=== PATIENT | male | born 1975 | race Caucasian/White ===

== ENCOUNTER 2017-12-28 08:54 | Emergency (ER) | payer MEDICAID, OTHER ==
--- NOTE | 2017-12-28 09:35 | ED Physician Documentation ---
PD HPI CHEST PAIN - Stated complaint Stated Complaint: CP/NECK PX - Chief complaint Chief Complaint: Cardiac - History obtained from History obtained from: Patient - History of Present Illness Timing - onset: How many days ago (6) Timing - onset during: Rest Timing - duration: Days (6) Timing - details: Gradual onset, Still present Quality: Pressure, Tightness Location: Substernal Improved by: Rest Worsened by: Inspiration, Movement, Palpation Associated symptoms: No: Shortness of air, Diaphoresis, Nausea, Vomiting, Feeling faint / dizzy, General Weakness, Palpitations, Cough Similar symptoms before: Has not had sx before Recently seen: Not recently seen - Additional information Additional information: 42-year-old male has developed some chest pain in his anterior chest is worse with inspiration and with movement of his neck. He states that he believes this is related to moving a heavy object 3 weeks ago. 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 Over the past 6 days he has developed anterior chest pain that is worse with moving his neck to the left and not to the right. He has pain in the left neck that extends to the left scalp. He denies diaphoresis, dyspnea or exertional component to the chest pain. Review of Systems Constitutional: reports: Myalgias. denies: Fever, Chills Eyes: denies: Loss of vision, Decreased vision Ears: denies: Ear pain Nose: denies: Rhinorrhea / runny nose, Congestion Throat: denies: Sore throat Cardiac: reports: Chest pain / pressure. denies: Palpitations, Pedal edema, Calf pain Respiratory: denies: Dyspnea, Cough, Wheezing GI: denies: Abdominal Pain, Nausea, Vomiting : denies: Dysuria, Frequency Skin: denies: Rash Musculoskeletal: reports: Neck pain, Extremity pain. denies: Back pain Neurologic: denies: Generalized weakness, Focal weakness, Numbness, Difficulty speaking PD PAST MEDICAL HISTORY - Past Medical History Past Medical History: No - Past Surgical History Past Surgical History: Yes Ortho: Other HEENT: Tonsil/Adenoidectomy - Present Medications Home Medications: Ambulatory Orders Medication Instructions Recorded Confirmed Cyclobenzaprine [Flexeril] 10 mg PO TID PRN #20 tablet 12/28/17 HYDROcod/ACETAM 5/325 [[place] 5/325] 1 - 2 ea PO Q6H PRN #15 tablet 12/28/17 - Allergies Allergies/Adverse Reactions: Allergies Allergy/AdvReac Type Severity Reaction Status Date / Time Sulfa (Sulfonamide AdvReac Cramps Verified 12/28/17 10:23 Antibiotics) - Social History Does the pt smoke?: Yes Smoking Status: Current every day smoker Does the pt drink ETOH?: No Does the pt have substance abuse?: No - POLST Patient has POLST: No PD ED PE NORMAL - Vitals Vital signs reviewed: Yes (hypertensive diastolic ) - General General: Alert and oriented X 3, No acute distress, Well developed/nourished - HEENT HEENT: Atraumatic, PERRL, EOMI, Ears normal, Moist mucous membranes, Pharynx benign, Dentition benign - Neck Neck: Supple, no meningeal sign, No bony TTP - Cardiac Cardiac: RRR, No murmur - Respiratory Respiratory: No respiratory distress, Clear bilaterally, Other (mild pain to palpation anteriorly ) - Abdomen Abdomen: Soft, Non tender - Back Back: No CVA TTP, No spinal TTP - Derm Derm: Normal color, Warm and dry, No rash - Extremities Extremities: No deformity, No edema - Neuro Neuro: Alert and oriented X 3, solution lead 2-12 intact, No motor deficit, No sensory deficit, Normal speech Eye Opening: Spontaneous Motor: Obeys Commands Verbal: Oriented GCS Score: 15 - Psych Psych: Normal mood, Normal affect Results - Vitals Vitals: Vital Signs - 24 hr 12/28/17 09:07 Temperature 36.7 C Heart Rate 69 Respiratory 14 Rate Blood Pressure 116/89 H O2 Saturation 97 Oxygen O2 Source Room air - EKG (time done) 0905 Rate: Rate (enter#) (62) Rhythm: NSR Other comments: Other comments (borderline short [place]) Compare to prior EKG: Old EKG unavailable Computer interpretation: Agree with computer - Labs Labs: Laboratory Tests 12/28/17 12/28/17 12/28/17 09:57 09:57 09:57 WBC 7.0 RBC 5.27 Hgb 16.4 Hct 48.7 MCV 92.5 MCH 31.2 H MCHC 33.8 RDW 13.0 Plt Count 176 MPV 8.3 Neut # (Auto) 4.3 Lymph # (Auto) 1.8 [place] # (Auto) 0.5 Eos # (Auto) 0.3 Baso # (Auto) 0.0 Absolute Nucleated RBC 0.00 Nucleated RBC % 0.0 ESR Sodium 137 Potassium 4.6 Chloride 103 Carbon Dioxide 29 Anion Gap 5.0 L BUN 18 Creatinine 1.0 Estimated GFR (MDRD) 81 L Glucose 104 H Calcium 9.3 Total Bilirubin 0.6 AST 31 ALT 25 Alkaline Phosphatase 54 Troponin I < 0.04 C-Reactive Protein < 1.0 Total Protein 7.5 Albumin 4.3 Globulin 3.2 Albumin/Globulin Ratio 1.3 Lipase 30 Urine Color Urine Clarity Urine pH Ur Specific [place] Urine Protein Urine Glucose (UA) Urine Ketones Urine Occult Blood Urine Nitrite Urine Bilirubin Urine Urobilinogen Ur Leukocyte Esterase Ur Microscopic Review Urine Culture Comments 12/28/17 12/28/17 09:57 11:00 WBC RBC Hgb Hct MCV MCH MCHC RDW Plt Count MPV Neut # (Auto) Lymph # (Auto) [place] # (Auto) Eos # (Auto) Baso # (Auto) Absolute Nucleated RBC Nucleated RBC % ESR 1 Sodium Potassium Chloride Carbon Dioxide Anion Gap BUN Creatinine Estimated GFR (MDRD) Glucose Calcium Total Bilirubin AST ALT Alkaline Phosphatase Troponin I C-Reactive Protein Total Protein Albumin Globulin Albumin/Globulin Ratio Lipase Urine Color YELLOW Urine Clarity CLEAR Urine pH 7.0 Ur Specific [place] 1.020 Urine Protein NEGATIVE Urine Glucose (UA) NEGATIVE Urine Ketones NEGATIVE Urine Occult Blood NEGATIVE Urine Nitrite NEGATIVE Urine Bilirubin NEGATIVE Urine Urobilinogen 0.2 (NORMAL) Ur Leukocyte Esterase NEGATIVE Ur Microscopic Review NOT INDICATED Urine Culture Comments NOT INDICATED - Rads (name of study) 2 [facility] chest Radiology: Prelim report reviewed (Impression: Normal chest for age and body size, stable. No pneumonia, CHF or other demonstrated cause for the patient's symptoms.), EMP read indepedently, See rad report PD MEDICAL DECISION MAKING - ED course Complexity details: reviewed old records, reviewed results, re-evaluated patient , considered differential, d/w patient ED course: 42-year-old male with a lifting type injury 3 weeks ago has persistence of pain and now is developed some pleuritic chest pain. He has no abnormalities on his chest x-ray electrocardiogram and his troponin is negative. He has some improvement in the pleuritic chest pain with the dexamethasone. He has some mild improvement in his neck pain as well. His neck was not imaged today as I believe the correct imaging for his neck pain his MRI and we do not have access to this today. I will have the patient follow-up with his primary for further evaluation. - Sepsis Event Vital Signs: Vital Signs - 24 hr 12/28/17 09:07 Temperature 36.7 C Heart Rate 69 Respiratory 14 Rate Blood Pressure 116/89 H O2 Saturation 97 Oxygen O2 Source Room air Departure - Departure Disposition: 01 Home, Self Care Clinical Impression: Atypical chest pain, Cervical radiculopathy Condition: Stable Instructions: ED Chest Pain NonCardiac, ED Sprain Strain Neck Follow-Up: Leandro Fuchs MD [Provider Admit Priv/Credential] - Prescriptions: Cyclobenzaprine [Flexeril] 10 mg PO TID PRN #20 tablet PRN Reason: Spasms HYDROcod/ACETAM 5/325 [[place] 5/325] 1 - 2 ea PO Q6H PRN #15 tablet PRN Reason: Pain Forms: Activity restrictions
[2017-12-28] MEDS ORDERED: DEXAMETHASONE 10 MG/ML VIAL IVP STA (09:51)
[2017-12-28 10:06] LABS: BASOPHILS % (AUTO) 0.4 %; EOSINOPHILS # (AUTO) 0.3 10^3/uL (0.0-0.7); EOSINOPHILS % (AUTO) 4.2 %; HGB - HEMOGLOBIN 16.4 g/dL (14.0-18.0); LYMPHOCYTES # (AUTO) 1.8 10^3/uL (1.5-3.5); MEAN CORPUSCULAR HEMOGLOBIN 31.2 pg (27.0-31.0); MEAN CORPUSCULAR HGB CONC 33.8 g/dL (32.0-36.0); MEAN CORPUSCULAR VOLUME 92.5 fL (80.0-94.0); MEAN PLATELET VOLUME 8.3 fL (7.4-11.4); MONOCYTES # (AUTO) 0.5 10^3/uL (0.0-1.0); MONOCYTES % (AUTO) 7.3 %; NEUTROPHILS # (AUTO) 4.3 10^3/uL (1.5-6.6); NEUTROPHILS % (AUTO) 62.1 %; PLT - PLATELET COUNT 176 10^3/uL (130-450); RED BLOOD COUNT 5.27 10^6/uL (4.70-6.10)
[2017-12-28 10:24] LABS: ALBUMIN 4.3 g/dL (3.2-5.5); ALBUMIN/GLOBULIN RATIO 1.3 (1.0-2.2); ALKALINE PHOSPHATASE 54 IU/L (42-121); ALT ALANINE AMINOTRANSFERASE 25 IU/L (10-60); AST ASPARTATE AMINOTRANSFERASE 31 IU/L (10-42); BILIRUBIN,TOTAL 0.6 mg/dL (0.2-1.0); BUN - BLOOD UREA NITROGEN 18 mg/dL (6-20); CALCIUM 9.3 mg/dL (8.5-10.3); CARBON DIOXIDE - CO2 29 mmol/L (21-32); CHLORIDE 103 mmol/L (101-111); GFR - MDRD 81 (>89); GLUCOSE 104 mg/dL (70-100); LIPASE 30 U/L (22-51); SODIUM 137 mmol/L (135-145); TOTAL PROTEIN 7.5 g/dL (6.7-8.2)
[2017-12-28 10:47] LABS: CRP - C-REACTIVE PROTEIN < 1.0 mg/dL (0-1.0)
--- NOTE | 2017-12-28 11:04 | XRAY Report ---
Reason: anterior chest pain Procedure Date: 12/28/2017 Accession Number: [id number] / [id number] Procedure: XR - Chest 2 View X-Ray CPT Code: 78688 FULL RESULT: EXAM: CHEST RADIOGRAPHY, 2 VIEWS EXAM DATE: 12/28/2017 10:48 AM. CLINICAL HISTORY: Anterior chest pain and neck pain for the last 6 days, increased with inspiration, movement and palpitation, in a 42-year-old male. COMPARISON: Chest x-ray 11/30/2007. TECHNIQUE: Upright PA and lateral views. FINDINGS: Lungs/Pleura: No focal opacities evident. No pleural effusion. No pneumothorax. Normal volumes. Mediastinum: Heart and mediastinal contours are unremarkable. No pulmonary vascular congestion or adenopathy. Other: Trachea is midline. Osseous structures are unremarkable. IMPRESSION: Normal chest for age and body size, stable. No pneumonia, CHF or other demonstrated cause for the patient's symptoms. RADIA
[2017-12-28 11:12] LABS: BILIRUBIN,URINE NEGATIVE (NEGATIVE); GLUCOSE, URINE (UA) NEGATIVE (NEGATIVE); KETONES,URINE (UA) NEGATIVE (NEGATIVE); LEUKOCYTE ESTERASE, URINE NEGATIVE (NEGATIVE); NITRITE,URINE NEGATIVE (NEGATIVE); OCCULT BLOOD,URINE NEGATIVE (NEGATIVE); PROTEIN,URINE NEGATIVE (NEGATIVE); UROBILINOGEN,URINE 0.2 (NORMAL) E.U./dL (NORMAL)
[2017-12-28 11:13] LABS: CLARITY,URINE CLEAR (CLEAR)
[2017-12-28 14:21] VITALS: BP 116/85
== END 2017-12-28 14:00 | disposition home or self-care (01) ==
LOC: ED 08:54
DX: R07.89 Other chest pain (principal); M54.12 Radiculopathy, cervical region; F17.200 Nicotine dependence, unspecified, uncomplicated
CPT/HCPCS: 36415; 71046; 80053; 81001; 81003; 83690; 84484; 85025; 85651; 86140; 87086; 93005; 96374; 99283; 99284

== ENCOUNTER 2023-09-29 08:59 | Outpatient (CLI) | payer BC ==
--- NOTE | 2023-09-29 10:00 | XRAY Report ---
PROCEDURE: Knee 4+V RT INDICATIONS: RIGHT KNEE PAIN TECHNIQUE: 4 views of the right knee and a single AP view of the left knee were acquired. COMPARISON: None. FINDINGS: Bones: No fractures or dislocations. No suspicious bony lesions. No significant right knee degenera tive change. Incidental note is made of the presence of a large subchondral cystic structure in the l eft proximal tibia. Soft tissues: No knee joint effusion. No suspicious soft tissue calcifications or masses. IMPRESSION: 1. Unremarkable right knee plain films. No evidence acute bony abnormality. 2. Incidental note made of presence of a large subchondral cyst involving the left proximal tibia. Reviewed by: Eriberto Dougherty MD on 09/29/2023 9:59 AM PDT Approved by: Eriberto Dougherty MD on 09/29/2023 9:59 AM PDT Station ID: [id number]
== END 2023-09-29 09:00 | disposition home or self-care (01) ==
LOC: DI 08:59
PROVIDERS: ATTEND Orthopaedic Surgery
DX: M25.561 Pain in right knee (principal)